=== PATIENT | female | born 1990 | race Caucasian/White ===

== ENCOUNTER 2017-08-07 12:27 | Emergency (ER) | payer SELFPAY ==
[2017-08-07 12:27] VITALS: BP 148/77; PULSE 80; RESP 16; TEMP 36.6; O2SAT 99; BMI 23.1
[2017-08-07] MEDS: 0.9% Normal Saline 1,000 ML 1000 ML IV (13:25)
[2017-08-07] MEDS: Ondansetron 4 MG/2 ML Vial IV (13:25)
[2017-08-07 13:27] VITALS: BP 139/90; PULSE 80; RESP 16; O2SAT 99
[2017-08-07 13:37] LABS: Absolute Lymphocyte Count 1.72 X10^3/ul (0.83-4.51); Absolute Neutrophil Count 5.9 X10^3/uL (2.0-7.7); Basophil# 0.03 X10^3/uL; Basophil% 0.4 % (0-1); Eosinophil# 0.04 X10^3/uL; Eosinophils% 0.5 % (0-5); Hematocrit 38.2 % (37-47); Hemoglobin 13.3 g/dl (12.0-15.0); Lymphocyte # 1.72 X10^3/ul (4.0); Lymphocyte % 20.1 % (19-41); Mean Corp Hgb Conc 34.8 g/gl (32-36); Mean Corpuscular Hgb 31.7 pg (27.0-32.0); Mean Platelet Vol. 10.1 fl (6.2-12.0); Monocyte# 0.89 X10^3/uL; Monocyte% 10.4 % (0-10); Neutrophil # 5.85 X10^3/uL (2.7-7.7); Neutrophil % 68.4 % (47-70); POSITIVE COUNT NO; POSITIVE DIFFERENTIAL NO; POSITIVE MORPHOLOGY NO; Platelet Count 273 K/mm3 (150-450); RBC Distribution Width CV 12.7 % (11.6-14.6); RBC Distribution Width SD 41.9 fl (35.1-43.9); White Blood Count 8.6 K/mm3 (4.4-11.0)
[2017-08-07 13:51] LABS: ALB/GLOB Ratio 1.2 RATIO (0.9-2.4); AST(SGOT) 5 U/L (15-37); Alanine Aminotransfer ALT/SGPT 13 U/L (13-56); Albumin, Serum 4.2 g/dL (3.2-5.0); Alkaline Phosphatase 69 U/L (45-117); Anion Gap 8 (5-15); BUN 10 mg/dL (7-18); BUN/Creat Ratio 15.4 RATIO (10-20); Calcium,Total 8.7 mg/dL (8.5-10.1); Chloride 105 mmol/L (98-107); Creatinine, Serum 0.65 mg/dL (0.55-1.02); EST Glomerular Filtration Rate 117 mL/min (>60); Est Glom Filt Rate - Afr Amer 142 mL/min (>60); Estimated Creatinine Clearance 109.45 ml/min; Globulin 3.5 g/dL (2.2-4.2); Glucose 90 mg/dL (74-106); Lipase 93 U/L (73-393); Potassium 3.6 mmol/L (3.5-5.1); Protein, Total 7.7 g/dL (6.4-8.2); Sodium Level 140 mmol/L (136-145)
--- NOTE | 2017-08-07 14:20 | ED.VISSUMM ---
- ER Visit Summary Date of Service: 08/07/17 Chief Complaint: Vomiting and diarrhea History of Present Illness: The patient is a 26 F who states that last Thursday night she developed some nausea vomiting vomiting has persisted intermittently through today. Thursday and Thursday of last week she had diarrhea is been intermittent. She states that the diarrhea is a light brown and watery. She denies any fevers. No significant abdominal pain. She did try some Imodium earlier in the week. She denies any bad food exposures or recent antibiotics. No recent travel other than the [place]. Physical Examination: Afebrile vital signs are stable Gen: Well-nourished well-developed Head: Normocephalic atraumatic Eyes: Perrl EOMI ENT: TMs clear no rhinorrhea moist mucous membranes Neck: Supple no lymphadenopathy no JVD nontender CVS: Regular rate rhythm no murmurs normal S1-S2 Respiratory: No distress clear to auscultation bilaterally chest nontender Abdomen: Soft nontender nondistended normal bowel sounds no masses Back: Nontender Extremity: Nontender no edema Skin: Normal color no rash Neuro: alert orientated ?3 CN II-XII intact normal strength sensation reflexes gait cerebellar Psych: Normal affect normal mood Test Results: Basic labs were negative Emergency Department Course and Treatment: Patient received IV fluids. There is no diarrhea to send for analysis. I believe this to be a viral illness. Patient will be discharged home on Zofran. She will follow-up if not improving. Impression: 1. Gastroenteritis This note was generated with [employer] dictation software. It may contain incorrect words, spelling, and punctuation that were not noted in review of the chart prior to signing ED Disposition - Plan for ED Patient: Disposition: Home or Assisted Living Chief Complaint: Nausea/Vomiting/Diarrhea Instructions: ED Gastroenteritis Viral Prescriptions: Ondansetron [Zofran Odt] 4 mg PO Q8H PRN PRN #10 tab PRN Reason: Nausea Referrals: Zachery Heredia DO [Primary Care Provider] - 3-5 Days if not improving Additional Instructions: Zofran for nausea and vomiting. Imodium for diarrhea. Continue to hydrate.
--- NOTE | 2017-08-07 14:23 | ED.DCSUM_ITS ---
- ER Visit Summary Date of Service: 08/07/17 Chief Complaint: Vomiting and diarrhea History of Present Illness: The patient is a 26 F who states that last Thursday night she developed some nausea vomiting vomiting has persisted intermittently through today. Thursday and Thursday of last week she had diarrhea is been intermittent. She states that the diarrhea is a light brown and watery. She denies any fevers. No significant abdominal pain. She did try some Imodium earlier in the week. She denies any bad food exposures or recent antibiotics. No recent travel other than the [place]. Physical Examination: Afebrile vital signs are stable Gen: Well-nourished well-developed Head: Normocephalic atraumatic Eyes: Perrl EOMI ENT: TMs clear no rhinorrhea moist mucous membranes Neck: Supple no lymphadenopathy no JVD nontender CVS: Regular rate rhythm no murmurs normal S1-S2 Respiratory: No distress clear to auscultation bilaterally chest nontender Abdomen: Soft nontender nondistended normal bowel sounds no masses Back: Nontender Extremity: Nontender no edema Skin: Normal color no rash Neuro: alert orientated ?3 CN II-XII intact normal strength sensation reflexes gait cerebellar Psych: Normal affect normal mood Test Results: Basic labs were negative Emergency Department Course and Treatment: Patient received IV fluids. There is no diarrhea to send for analysis. I believe this to be a viral illness. Patient will be discharged home on Zofran. She will follow-up if not improving. Impression: 1. Gastroenteritis This note was generated with [employer] dictation software. It may contain incorrect words, spelling, and punctuation that were not noted in review of the chart prior to signing ED Disposition - Plan for ED Patient: Disposition: Home or Assisted Living Chief Complaint: Nausea/Vomiting/Diarrhea Instructions: ED Gastroenteritis Viral Prescriptions: Ondansetron [Zofran Odt] 4 mg PO Q8H PRN PRN #10 tab PRN Reason: Nausea Referrals: Zachery Heredia DO [Primary Care Provider] - 3-5 Days if not improving Additional Instructions: Zofran for nausea and vomiting. Imodium for diarrhea. Continue to hydrate.
[2017-08-07 14:29] VITALS: BP 132/65; PULSE 80; RESP 18; O2SAT 98
== END 2017-08-07 14:37 | disposition home or self-care (01) ==
PROVIDERS: Emergency Provider Emergency Medicine; Family Provider Family Medicine; PCP Family Medicine
DX: K52.9 Noninfective gastroenteritis and colitis, unspecified (principal); F32.9 Major depressive disorder, single episode, unspecified; F41.9 Anxiety disorder, unspecified; Z72.0 Tobacco use; Z79.899 Other long term (current) drug therapy
CPT/HCPCS: 80053; 83690; 85025; 96361; 96374; 99283; J2405

== ENCOUNTER → 2019-10-12 09:18 | Outpatient (CLI) | payer SELFPAY ==
[2019-10-14 03:07] LABS: Chlamydia By Nucleic Acid AMP Negative (Negative)
[2019-10-14 04:19] LABS: Gonococcus By Nucleic Acid AMP Negative (Negative)
== END ==
PROVIDERS: PCP Family Medicine; Visit Provider Family Medicine
DX: Z20.9 Contact with and (suspected) exposure to unspecified communicable disease (principal)
CPT/HCPCS: 87491; 87591

== ENCOUNTER → 2020-12-17 | Outpatient (REF) | payer MEDICARE, SELFPAY | END | disposition home or self-care (01) | LOC: LABSPEC 08:34 | PROVIDERS: Visit Provider Family Medicine | DX: Z03.818 Encounter for observation for suspected exposure to other biological agents ruled out (principal) | CPT/HCPCS: 87635; U0005; U0003 ==

== ENCOUNTER 2021-04-28 10:30 | Emergency (ER) | payer OTHER, SELFPAY ==
[2021-04-28 10:31] VITALS: BP 144/87; PULSE 115; RESP 14; TEMP 36.4; O2SAT 96; BMI 27.3
--- NOTE | 2021-04-28 10:52 | EDS_ITS ---
HPI History of Present Illness Chief Complaint: Upper Extremity Injury Informant: patient Narrative Narrative: Patient was lifting a [facility] patient at work this morning about 7 or 730. He was somewhat resistant to transferring from toilet to wheelchair. She felt a pop and pain in her left shoulder. She had a little bit of tingling in her left small finger that is now doing better. No other injury. Motion makes it worse and rest makes it better. No other injury. [facility] Medical History (Updated 04/28/21 @ 11:[address] Julito Reynaga MD) Depression Home Medications citalopram 30 mg PO DAILY 08/07/17 [History Last Taken 08/06/17] Allergy/AdvReac Type Severity Reaction Status Date / Time No Known Allergies Allergy Verified 04/28/21 10:33 Social History Smoking Status: Current every day smoker tobacco type: cigarettes ROS ROS ED Respiratory/Chest Respiratory/Chest: Denies cough or dyspnea Gastrointestinal Gastrointestinal: Denies nausea or vomiting Musculoskeletal Musculoskeletal: Reports other Details: See history of present illness ; Denies back pain or neck pain Integumentary Denies Abrasions or rash Neurologic Neurologic: Reports paresthesias; Denies weakness Hematologic/Lymphatic Hematologic/Lymphatic: Denies easy bleeding or easy bruising EXAM Physical Exam Const Vital Signs: 04/28/21 10:31 Temperature 97.6 F L Temperature Source Temporal Pulse Rate 115 H Respiratory Rate 14 Blood Pressure 144/87 H Blood Pressure Mean 106 Pulse Ox 96 Oxygen Delivery Method Room Air Positive well nourished and well developed General Appearance ED: well developed and NAD HEENT normocephalic and atraumatic Resp normal respiratory effort Extremity normal to inspection Extremity Narrative: Mild nonfocal tenderness diffusely around the left shoulder. It does appear to be in joint clinically. No clavicular tenderness. No tenderness of the scapula posteriorly. Range of motion is intact but somewhat sore. Distal neurovascular status is intact. She does still have a little decreased subjective sensation of her left small finger. General Extremety ED: Negative for edema General Extremity: Negative for edema Neuro oriented x3 Neuro Narrative: See above. Sensorium / Orientation: alert Skin Lesions: no lesions Rashes: no rashes MDM MDM MDM Narrative Medical decision making narrative: Patient's shoulder films looked at by me and read by radiology. Showed no sign of acute fracture or dislocation. I think this patient will do well with ice rest and [id number] meds. I do not think a sling would be appropriate may actually cause more stiffness. She will have light duty. Discharge Plan Triage Chief Complaint: Upper Extremity Injury ED Provider: Julito Reynaga Dx/Rx/DC Orders Clinical Impression: Muscle strain of left shoulder region Instructions: ED Shoulder Sprain Prescriptions: No Action citalopram 10 MG tablet 30 mg PO DAILY RF: 0 Primary Care Provider: Zachery Heredia Referrals: Zachery Heredia, [Primary Care Provider] - 3-5 Days if not improving Disposition Disposition: Home, Self Care
--- NOTE | 2021-04-28 11:00 | RAD_ITS ---
STUDY: XR Shoulder Min 2 Views REASON FOR EXAM: Female, 30 years old. PAIN TECHNIQUE: XR Shoulder Min 2 Views LEFT COMPARISON: None. FINDINGS: Normal glenohumeral articulation. Normal acromioclavicular joint. Normal acromion. Normal humeral head and visualized proximal humerus. The soft tissue structures are unremarkable. Normal visualized pulmonary apex. RAD/Shoulder min 2 Views IMPRESSION: There are no acute findings of the shoulder. Electronically Signed: Rivas Ernst MD at 11:24 EDT ,
== END 2021-04-28 12:07 | disposition home or self-care (01) ==
PROVIDERS: Emergency Provider Emergency Medicine; PCP Family Medicine; Visit Provider Emergency Medicine
DX: S46.912A Strain of unspecified muscle, fascia and tendon at shoulder and upper arm level, left arm, initial encounter (principal); X50.0XXA Overexertion from strenuous movement or load, initial encounter; Y93.F2 Activity, caregiving, lifting; Y92.121 Bathroom in nursing home as the place of occurrence of the external cause; Y99.0 Civilian activity done for income or pay; F32.A Depression, unspecified; F17.210 Nicotine dependence, cigarettes, uncomplicated; Z79.899 Other long term (current) drug therapy
CPT/HCPCS: 73030; 99282